=== PATIENT | female | born 1935 ===

== ENCOUNTER 2020-08-25 07:47 | Inpatient (IN) | payer OTHER ==
[~2020-08-25] VITALS: Ht 162.6 cm; Wt 81.2 kg
[2020-08-26] MEDS ORDERED: CYMBALTA60 MG PO (08:14)
[2020-08-26] MEDS ORDERED: GABAPENTIN800 M1 PO (08:14)
[2020-08-26] MEDS ORDERED: AVALIDE 300-121 EACH PO (08:14)
[2020-08-26] MEDS ORDERED: REMERON15 MG PO (08:15)
[2020-08-26] MEDS ORDERED: SYNTHROID88 MCG PO (08:15)
[2020-09-04] MEDS ORDERED: PERCOCET 5-3251 EACH PO (07:42)
[2020-09-04] MEDS ORDERED: ELIQUIS2.5 MG PO (07:42)
[2020-09-04] MEDS ORDERED: DUI500 PO (07:42)
== END 2020-09-05 11:52 | DRG 470 ==
LOC: O/R 09-01 06:38 → SURH 09-01 07:00
PROVIDERS: ADMIT Orthopaedic Surgery; ATTEND Orthopaedic Surgery
PROC: 0MNN0ZZ Release Right Knee Bursa and Ligament, Open Approach (ICD-10-PCS; 2020-09-01)
PROC: 0SRC0J9 Replacement of Right Knee Joint with Synthetic Substitute, Cemented, Open Approach (ICD-10-PCS; principal; 2020-09-01 07:00)
PROC: 30233N1 Transfusion of Nonautologous Red Blood Cells into Peripheral Vein, Percutaneous Approach (ICD-10-PCS; 2020-09-03)
DX: M17.11 Unilateral primary osteoarthritis, right knee (principal); D62 Acute posthemorrhagic anemia; M80.00XA Age-related osteoporosis with current pathological fracture, unspecified site, initial encounter for fracture; Z20.828 Contact with and (suspected) exposure to other viral communicable diseases